=== PATIENT | male | born 1955 | race Caucasian/White ===

== ENCOUNTER 2022-01-26 11:00 | Inpatient (IN) | payer MEDICARE, OTHER ==
[2022-01-26 12:42] LABS: #Eosinphils 0.1 thou/uL (0.0-0.7); #Lymphocytes 1.3 thou/uL (1.20-3.40); #Monocytes 0.8 thou/uL (0.11-0.59); #Neutrophils 5.8 thou/uL (1.40-6.50); %Basophils 0.6 % (0.0-1.0); %Eosinophils 1.7 % (0.0-10.0); %Lymphocytes 15.7 % (21.0-51.0); %Monocytes 9.5 % (0.0-10.0); %Neutrophils 72.4 % (42.0-75.0); Hemoglobin 12.9 g/dL (14.0-18.0); Mean Corpuscular Hemoglobin 33.3 pg (27.0-31.0); Mean Platelet Volume 8.2 fL (7.4-10.4); Platelet Count 127 thou/uL (130-400); RBC Distribution Width 12.1 % (11.5-14.5); Red Blood Cell (RBC) Count 3.87 mill/uL (4.70-6.10)
[2022-01-26 13:02] LABS: Anion Gap 17 mmol/L (10-20); BUN (Urea Nitrogen) 16 mg/dL (8.4-25.7); Calc. Creatinine Clearance 0 mL/min (70-130); Calcium 9.5 mg/dL (7.8-10.44); Carbon Dioxide 28 mmol/L (23-31); Chloride 93 mmol/L (98-107); Estimated GFR 96; Glucose 131 mg/dL (80-115); Magnesium 1.7 mg/dL (1.6-2.6); Potassium 3.5 mmol/L (3.5-5.1); Sodium 134 mmol/L (136-145)
[2022-01-26] MEDS ORDERED: chlordiazePOXIDE HCl 25 MG CAP PO SCH (14:45)
[2022-01-26] MEDS ORDERED: Ondansetron PF 4 MG/2 ML Vial IVP PRN (15:42)
[2022-01-26] MEDS ORDERED: Lorazepam 1 MG TAB PO PRN (15:47)
[2022-01-26] MEDS ORDERED: Lorazepam 2 MG/ML VIAL IM PRN (15:47)
[2022-01-26] MEDS ORDERED: Ondansetron ODT 4 MG TAB PO PRN (15:47)
[2022-01-26] MEDS ORDERED: Electrolyte Replacement Protocol 1 EACH FS SCH (16:00)
[2022-01-26] MEDS ORDERED: Electrolyte Replacement Protocol FS PRN (16:45)
[2022-01-26 17:16] LABS: CKMB 5.3 ng/mL (0-6.6)
[2022-01-26] MEDS ORDERED: Dextrose 50% Abboject 50 ML SYRINGE SLOW IVP PRN (17:32)
[2022-01-26] MEDS ORDERED: Dextrose 5% in Water 1,000 ML IV PRN (17:32)
[2022-01-26] MEDS ORDERED: HumaLOG 300 UNITS/3 ML VIAL SC PRN (17:32)
[2022-01-26 18:29] LABS: Syphilis Antibody Nonreactive (Nonreactive); Syphilis Antibody Index 0.08 S/CO (<1.00 Non-Reactive)
[2022-01-26] MEDS ORDERED: Lorazepam 1 MG TAB ONE (18:53)
[2022-01-26] MEDS: Lorazepam 1 MG TAB PO SCH (18:56)
[2022-01-26 21:20] LABS: SARS-CoV-2 NAA Rapid Test DETECTED (NotDetected)
[2022-01-26] MEDS ORDERED: Potassium Chloride 20 MEQ TAB PO SCH (22:00)
[2022-01-26] MEDS ORDERED: Magnesium 2 GM/50 ML(in water) 2 GM in Premix Bag 1 BAG IVPB SCH (22:00)
[2022-01-26] MEDS ORDERED: Magnesium 2 GM/50 ML BAG (IN WATER) ONE (23:21)
[2022-01-27] MEDS ORDERED: Acetaminophen 650 MG Suppository PR PRN (03:30)
[2022-01-27] MEDS ORDERED: Acetaminophen 325 MG TAB PO PRN (03:30)
[2022-01-27] MEDS ORDERED: Benzonatate 100 MG CAP PO PRN (03:30)
[2022-01-27] MEDS ORDERED: Albuterol 200 PUFF (6.7GM INHALER) INH PRN (03:30)
[2022-01-27 03:40] VITALS: BMI 34.4
[2022-01-27 05:25] LABS: #Basophils 0.1 thou/uL (0.0-0.2); #Eosinphils 0.5 thou/uL (0.0-0.7); #Lymphocytes 1.4 thou/uL (1.20-3.40); #Monocytes 0.7 thou/uL (0.11-0.59); #Neutrophils 3.9 thou/uL (1.40-6.50); %Basophils 1.3 % (0.0-1.0); %Lymphocytes 21.3 % (21.0-51.0); %Monocytes 10.7 % (0.0-10.0); %Neutrophils 59.8 % (42.0-75.0); Hemoglobin 12.3 g/dL (14.0-18.0); Mean Corpuscular HGB CONC 33.1 g/dL (32.0-36.0); Mean Corpuscular Hemoglobin 33.5 pg (27.0-31.0); Mean Platelet Volume 8.4 fL (7.4-10.4); Platelet Count 111 thou/uL (130-400); RBC Distribution Width 12.2 % (11.5-14.5); Red Blood Cell (RBC) Count 3.66 mill/uL (4.70-6.10); White Blood Cell (WBC) Count 6.5 thou/uL (4.8-10.8)
[2022-01-27 05:31] LABS: Anion Gap 12 mmol/L (10-20); BUN (Urea Nitrogen) 14 mg/dL (8.4-25.7); Calc. Creatinine Clearance 150 mL/min (70-130); Carbon Dioxide 30 mmol/L (23-31); Chloride 97 mmol/L (98-107); Estimated GFR 97; Glucose 200 mg/dL (80-115); Magnesium 2.1 mg/dL (1.6-2.6); Potassium 3.3 mmol/L (3.5-5.1); Sodium 136 mmol/L (136-145)
[2022-01-27] MEDS ORDERED: Potassium Chloride 20 MEQ TAB PO SCH (08:00)
[2022-01-27] MEDS: Lorazepam 1 MG TAB PO SCH ×5 (08:02→21:25)
[2022-01-27] MEDS: Insulin Glargine 30 UNITS/0.3 ML VIAL SC SCH ×3 (08:02→21:25)
[2022-01-27] MEDS: Famotidine 20 MG TAB PO SCH ×3 (08:02→21:27)
[2022-01-27] MEDS: Atorvastatin Calcium 20 MG TAB PO SCH ×2 (08:02→21:25)
[2022-01-27] MEDS: Acetaminophen 325 MG TAB PO PRN ×2 (08:55→21:35)
[2022-01-27] MEDS: Hydrochlorothiazide 25 MG TAB PO SCH (08:58)
[2022-01-27] MEDS: Folic Acid 1 MG TAB PO SCH (08:58)
[2022-01-27] MEDS: Lisinopril 20 MG TAB PO SCH (08:59)
[2022-01-27] MEDS ORDERED: Folic Acid 1 MG TAB PO SCH (09:00)
[2022-01-27] MEDS: Amlodipine 5 MG TAB PO SCH (09:00)
[2022-01-27] MEDS: Multivit, Therapeutic 1 TAB PO SCH (09:00)
[2022-01-27] MEDS: HumaLOG 300 UNITS/3 ML VIAL SC PRN ×2 (11:41→17:30)
[2022-01-27 14:19] LABS: Potassium 3.7 mmol/L (3.5-5.1)
[2022-01-27] MEDS ORDERED: Bupropion 150 MG XL TAB PO SCH (14:30)
[2022-01-27] MEDS ORDERED: Lorazepam 1 MG TAB PO PRN (15:47)
[2022-01-28 05:00] LABS: #Basophils 0.1 thou/uL (0.0-0.2); #Eosinphils 0.7 thou/uL (0.0-0.7); #Lymphocytes 1.3 thou/uL (1.20-3.40); #Monocytes 0.6 thou/uL (0.11-0.59); %Basophils 1.2 % (0.0-1.0); %Eosinophils 10.1 % (0.0-10.0); %Lymphocytes 19.1 % (21.0-51.0); %Monocytes 9.4 % (0.0-10.0); %Neutrophils 60.2 % (42.0-75.0); Hemoglobin 13.1 g/dL (14.0-18.0); Mean Corpuscular HGB CONC 33.4 g/dL (32.0-36.0); Mean Platelet Volume 8.2 fL (7.4-10.4); Platelet Count 127 thou/uL (130-400); RBC Distribution Width 12.4 % (11.5-14.5); Red Blood Cell (RBC) Count 3.84 mill/uL (4.70-6.10); White Blood Cell (WBC) Count 6.7 thou/uL (4.8-10.8)
[2022-01-28 05:20] LABS: Anion Gap 12 mmol/L (10-20); BUN (Urea Nitrogen) 18 mg/dL (8.4-25.7); Calc. Creatinine Clearance 140 mL/min (70-130); Carbon Dioxide 28 mmol/L (23-31); Chloride 98 mmol/L (98-107); Estimated GFR 95; Potassium 3.4 mmol/L (3.5-5.1); Sodium 135 mmol/L (136-145)
[2022-01-28 05:21] LABS: Calcium 9.4 mg/dL (7.8-10.44); Glucose 185 mg/dL (80-115)
[2022-01-28 05:26] LABS: Troponin I 0.056 ng/mL (< 0.028)
[2022-01-28] MEDS: Lorazepam 1 MG TAB PO SCH ×2 (05:36→11:04)
[2022-01-28] MEDS ORDERED: Potassium Chloride 20 MEQ TAB PO SCH (08:30)
[2022-01-28] MEDS: Hydrochlorothiazide 25 MG TAB PO SCH (08:46)
[2022-01-28] MEDS: Folic Acid 1 MG TAB PO SCH (08:46)
[2022-01-28] MEDS: Multivit, Therapeutic 1 TAB PO SCH (08:49)
[2022-01-28] MEDS: Amlodipine 5 MG TAB PO SCH (08:49)
[2022-01-28] MEDS: Lisinopril 20 MG TAB PO SCH (08:49)
[2022-01-28] MEDS: Bupropion 150 MG XL TAB PO SCH (08:49)
[2022-01-28] MEDS: Famotidine 20 MG TAB PO SCH (08:49)
[2022-01-28] MEDS: Insulin Glargine 30 UNITS/0.3 ML VIAL SC SCH ×2 (08:50→20:24)
[2022-01-28] MEDS: Acetaminophen 325 MG TAB PO PRN (08:53)
[2022-01-28] MEDS: HumaLOG 300 UNITS/3 ML VIAL SC PRN ×2 (12:54→18:22)
[2022-01-28] MEDS ORDERED: Amlodipine 5 MG TAB PO SCH (13:45)
[2022-01-28] MEDS ORDERED: Insulin Glargine 30 UNITS/0.3 ML VIAL SC SCH (14:15)
[2022-01-28] MEDS ORDERED: Lorazepam 1 MG TAB PO PRN (15:47)
[2022-01-28] MEDS ORDERED: Lorazepam 0.5 MG TAB PO SCH (16:00)
[2022-01-28] MEDS: Diazepam 5 MG TAB PO SCH ×2 (16:27→20:25)
[2022-01-28] MEDS: Atorvastatin Calcium 20 MG TAB PO SCH (20:25)
[2022-01-29] MEDS: Diazepam 5 MG TAB PO SCH ×4 (02:44→20:40)
[2022-01-29 05:36] LABS: #Basophils 0.1 thou/uL (0.0-0.2); #Eosinphils 0.8 thou/uL (0.0-0.7); #Lymphocytes 1.6 thou/uL (1.20-3.40); #Monocytes 0.9 thou/uL (0.11-0.59); #Neutrophils 5.3 thou/uL (1.40-6.50); %Basophils 0.8 % (0.0-1.0); %Eosinophils 8.8 % (0.0-10.0); %Lymphocytes 18.8 % (21.0-51.0); %Monocytes 10.4 % (0.0-10.0); %Neutrophils 61.2 % (42.0-75.0); Hemoglobin 13.2 g/dL (14.0-18.0); Mean Corpuscular HGB CONC 34.5 g/dL (32.0-36.0); Mean Platelet Volume 8.4 fL (7.4-10.4); Platelet Count 128 thou/uL (130-400); RBC Distribution Width 12.4 % (11.5-14.5); Red Blood Cell (RBC) Count 3.77 mill/uL (4.70-6.10); White Blood Cell (WBC) Count 8.7 thou/uL (4.8-10.8)
[2022-01-29 05:54] LABS: Anion Gap 12 mmol/L (10-20); BUN (Urea Nitrogen) 16 mg/dL (8.4-25.7); Calc. Creatinine Clearance 143 mL/min (70-130); Calcium 9.9 mg/dL (7.8-10.44); Carbon Dioxide 32 mmol/L (23-31); Chloride 98 mmol/L (98-107); Estimated GFR 96; Glucose 110 mg/dL (80-115); Potassium 3.7 mmol/L (3.5-5.1); Sodium 138 mmol/L (136-145)
[2022-01-29] MEDS: Insulin Glargine 30 UNITS/0.3 ML VIAL SC SCH ×2 (09:13→20:40)
[2022-01-29] MEDS: Cyanocobalamin (Vitamin B-12) 1,000 MCG TAB PO SCH (09:14)
[2022-01-29] MEDS: Folic Acid 1 MG TAB PO SCH (09:14)
[2022-01-29] MEDS: Hydrochlorothiazide 25 MG TAB PO SCH (09:14)
[2022-01-29] MEDS: Multivit, Therapeutic 1 TAB PO SCH (09:14)
[2022-01-29] MEDS: Bupropion 150 MG XL TAB PO SCH (09:14)
[2022-01-29] MEDS: Lisinopril 20 MG TAB PO SCH (09:14)
[2022-01-29] MEDS: Amlodipine 10 MG TAB PO SCH (09:15)
[2022-01-29] MEDS: HumaLOG 300 UNITS/3 ML VIAL SC PRN (12:54)
[2022-01-29] MEDS ORDERED: HumaLOG 300 UNITS/3 ML VIAL SC PRN (12:59)
[2022-01-29] MEDS ORDERED: Metoprolol Tartrate 25 MG TAB PO SCH (13:30)
[2022-01-29] MEDS ORDERED: Lorazepam 0.5 MG TAB PO PRN (15:47)
[2022-01-29] MEDS ORDERED: Thiamine 100 MG TAB PO SCH ×2 (17:00)
[2022-01-29] MEDS: Acetaminophen 325 MG TAB PO PRN (20:39)
[2022-01-29] MEDS: Metoprolol Tartrate 25 MG TAB PO SCH (20:40)
[2022-01-29] MEDS: Atorvastatin Calcium 20 MG TAB PO SCH (20:40)
[2022-01-30] MEDS: Diazepam 5 MG TAB PO SCH ×2 (03:23→09:52)
[2022-01-30] MEDS ORDERED: Hydrochlorothiazide 25 MG TAB PO SCH (09:00)
[2022-01-30] MEDS: Cyanocobalamin (Vitamin B-12) 1,000 MCG TAB PO SCH (09:46)
[2022-01-30] MEDS: Folic Acid 1 MG TAB PO SCH (09:46)
[2022-01-30] MEDS: Metoprolol Tartrate 25 MG TAB PO SCH (09:46)
[2022-01-30] MEDS: Insulin Glargine 30 UNITS/0.3 ML VIAL SC SCH (09:46)
[2022-01-30] MEDS: Amlodipine 10 MG TAB PO SCH (09:46)
[2022-01-30] MEDS: Bupropion 150 MG XL TAB PO SCH (09:47)
[2022-01-30] MEDS: Lisinopril 20 MG TAB PO SCH (09:47)
[2022-01-30] MEDS: Multivit, Therapeutic 1 TAB PO SCH (09:48)
[2022-01-30 11:54] VITALS: BP 164/96; TEMP 98
== END 2022-01-30 14:45 | disposition home or self-care (01) | DRG 896 ==
LOC: ERS 11:00 → ERHOLD 15:47 → NEURO 21:32
PROVIDERS: ADMIT Family Medicine; ATTEND Family Medicine
DX: F10.239 Alcohol dependence with withdrawal, unspecified (principal); U07.1 COVID-19; I10 Essential (primary) hypertension; E78.5 Hyperlipidemia, unspecified; F41.9 Anxiety disorder, unspecified; Z79.82 Long term (current) use of aspirin; Z79.4 Long term (current) use of insulin; Z79.899 Other long term (current) drug therapy; F43.10 Post-traumatic stress disorder, unspecified
CPT/HCPCS: 36415; 36416; 71045; 80048; 80307; 82553; 83735; 83880; 84484; 85025; 86780; 93005; J1815

== ENCOUNTER 2024-06-01 11:18 | Inpatient (IN) | payer MEDICARE, OTHER ==
[2024-06-01] MEDS ORDERED: Bisacodyl 10 MG SUPP PR PRN (11:58)
[2024-06-01] MEDS ORDERED: Ondansetron ODT 4 MG TAB PO PRN (11:58)
[2024-06-01] MEDS ORDERED: Acetaminophen 325 MG TAB PO PRN (11:58)
[2024-06-01] MEDS ORDERED: Ondansetron PF 4 MG/2 ML Vial IVP PRN (11:58)
[2024-06-01] MEDS ORDERED: Senokot S 8.6-50 MG TAB PO PRN (11:58)
[2024-06-01] MEDS ORDERED: Bisacodyl 5 MG TAB PO PRN (11:58)
[2024-06-01] MEDS ORDERED: Glucagon 1 MG/ML KIT IM PRN ×2 (12:10→12:53)
[2024-06-01] MEDS ORDERED: Dextrose 5% in Water 1,000 ML IV PRN ×2 (12:10→12:53)
[2024-06-01] MEDS ORDERED: Dextrose 50% Abboject 50 ML SYRINGE SLOW IVP PRN ×2 (12:10→12:53)
[2024-06-01 12:20] LABS: Troponin I 0.047 ng/mL (< 0.028)
[2024-06-01] MEDS ORDERED: Methocarbamol 500 MG TAB PO PRN (12:52)
[2024-06-01] MEDS ORDERED: Lorazepam 2 MG/ML VIAL IM PRN (13:06)
[2024-06-01] MEDS ORDERED: Lorazepam 1 MG TAB PO PRN (13:06)
[2024-06-01] MEDS ORDERED: Electrolyte Replacement Protocol FS SCH (13:15)
[2024-06-01] MEDS: Amlodipine 5 MG TAB PO SCH (14:55)
[2024-06-01] MEDS: Lisinopril 10 MG TAB PO SCH (14:55)
[2024-06-01] MEDS: Folic Acid 1 MG TAB PO SCH (14:55)
[2024-06-01 15:17] VITALS: BMI 35.7
[2024-06-01] MEDS: Lorazepam 1 MG TAB PO SCH (16:02)
[2024-06-01 16:18] LABS: Cocaine Metabolite Screen Not Detected (NotDetected); Phencyclidine (PCP) Not Detected (NotDetected); THC/Cannabinoid Screen Not Detected (NotDetected)
[2024-06-01 16:19] LABS: Methamphetamine Not Detected (NotDetected); Opiate Screen Not Detected (NotDetected)
[2024-06-01 16:20] LABS: Amphetamine Not Detected (NotDetected); Benzodiazepine Screen Not Detected (NotDetected); Methadone Not Detected (NotDetected); Tricyclic Screen Not Detected (NotDetected)
[2024-06-01 16:21] LABS: Barbiturates Screen Not Detected (NotDetected); Oxycodone Screen Not Detected (NotDetected)
[2024-06-01] MEDS: Multivit, Therapeutic 1 TAB PO SCH (18:40)
[2024-06-01] MEDS: Insulin Regular, Human 100 UNIT/ML 10 ML VIAL SC SCH (18:40)
[2024-06-01] MEDS: chlordiazePOXIDE HCl 25 MG CAP PO SCH (22:00)
[2024-06-01] MEDS: Atorvastatin Calcium 40 MG TAB PO SCH (22:00)
[2024-06-01] MEDS: Insulin Lispro 100 UNIT/ML 10 ML VIAL SC PRN (22:01)
[2024-06-01] MEDS: Labetalol HCl 100 MG/20 ML VIAL SLOW IVP PRN (22:17)
[2024-06-01] MEDS: Melatonin 3 MG TAB PO SCH (22:17)
[2024-06-02 04:34] LABS: #Basophils 0.05 10x3/uL (0.0-0.2); %Basophils 0.6 % (0.0-1.0); %Eosinophils 4.6 % (0.0-10.0); %Lymphocytes 24.1 % (21.0-51.0); %Monocytes 10.4 % (0.0-10.0); Hematocrit 38.5 % (42.0-52.0); Mean Corpuscular HGB CONC 33.8 g/dL (32.0-36.0); Mean Corpuscular Hemoglobin 33.3 pg (27.0-31.0); Mean Corpuscular Volume 98.7 fL (78.0-98.0); Mean Platelet Volume 10.7 fL (7.4-10.4); Platelet Count 148 10x3/uL (130-400); RBC Distribution Width 13.5 % (11.5-14.5)
[2024-06-02 04:40] LABS: Hemoglobin A1c 8.2 % (4.0-6.0)
[2024-06-02 04:54] LABS: ALT (SGPT) 52 U/L (8-55); AST (SGOT) 67 U/L (5-34); Albumin 3.4 g/dL (3.4-4.8); Alkaline Phosphatase 97 U/L (40-110); Anion Gap 14 mmol/L (10-20); BUN (Urea Nitrogen) 17 mg/dL (8.4-25.7); Bilirubin, Direct 0.5 mg/dL (0.1-0.3); Bilirubin, Total 1.4 mg/dL (0.2-1.2); Calc. Creatinine Clearance 148 mL/min (70-130); Calcium 9.2 mg/dL (7.8-10.44); Carbon Dioxide 28 mmol/L (23-31); Cardiac Risk 3.7 (Less than 4.5); Chloride 99 mmol/L (98-107); Cholesterol 232 mg/dl (< 200 Desired); Estimated GFR 96; Glucose 214 mg/dL (80-115); HDL Cholesterol 63 mg/dL (>60 Neg Risk); LDL Cholesterol, Calculated 132 mg/dL; Magnesium 1.8 mg/dL (1.6-2.6); Potassium 3.6 mmol/L (3.5-5.1); Protein, Total 7.3 g/dL (5.8-8.1); Sodium 137 mmol/L (136-145); Triglycerides 186 mg/dL (Less than 150)
[2024-06-02] MEDS: Insulin Regular, Human 100 UNIT/ML 10 ML VIAL SC SCH ×2 (07:35→12:33)
[2024-06-02] MEDS: Insulin Lispro 100 UNIT/ML 10 ML VIAL SC PRN (07:35)
[2024-06-02] MEDS: Multivit, Therapeutic 1 TAB PO SCH (08:48)
[2024-06-02] MEDS: Enoxaparin 40 MG (0.4 mL) SYRINGE SC SCH (08:48)
[2024-06-02] MEDS: Folic Acid 1 MG TAB PO SCH (08:48)
[2024-06-02] MEDS: Sertraline 100 MG TAB PO SCH (08:48)
[2024-06-02] MEDS: Insulin Glargine 30 UNITS/0.3 ML VIAL SC SCH (08:48)
[2024-06-02] MEDS: Aspirin 81 mg Enteric Coated Tablet PO SCH (08:48)
[2024-06-02] MEDS: Magnesium 2 GM/50 ML(in water) 2 GM in Premix 1 BAG IVPB SCH (08:49)
[2024-06-02 10:50] LABS: Troponin I 0.032 ng/mL (< 0.028)
[2024-06-02] MEDS: Lorazepam 2 MG/ML VIAL SLOW IVP SCH (11:29)
[2024-06-02] MEDS: Amlodipine 10 MG TAB PO SCH ×2 (12:30→22:50)
[2024-06-02] MEDS: Hydrochlorothiazide 25 MG TAB PO SCH (12:32)
[2024-06-02] MEDS: Lisinopril 20 MG TAB PO SCH (12:32)
[2024-06-02] MEDS ORDERED: Lorazepam 1 MG TAB PO PRN (13:06)
[2024-06-02] MEDS ORDERED: Non-Formulary Item 1 EACH (Atorvastatin Calcium [Atorvastatin Calcium] 80 MG Tablet) PO SCH (21:00)
[2024-06-02] MEDS: Melatonin 3 MG TAB PO SCH (22:50)
[2024-06-03 04:08] LABS: #Basophils 0.05 10x3/uL (0.0-0.2); %Basophils 0.5 % (0.0-1.0); %Eosinophils 5.3 % (0.0-10.0); %Lymphocytes 28.9 % (21.0-51.0); %Monocytes 9.9 % (0.0-10.0); Hematocrit 38.4 % (42.0-52.0); Mean Corpuscular HGB CONC 33.9 g/dL (32.0-36.0); Mean Corpuscular Hemoglobin 33.7 pg (27.0-31.0); Mean Corpuscular Volume 99.5 fL (78.0-98.0); Mean Platelet Volume 10.3 fL (7.4-10.4); Platelet Count 157 10x3/uL (130-400); RBC Distribution Width 13.2 % (11.5-14.5); Red Blood Cell (RBC) Count 3.86 mill/uL (4.70-6.10)
[2024-06-03 04:21] LABS: Anion Gap 13 mmol/L (10-20); BUN (Urea Nitrogen) 18 mg/dL (8.4-25.7); Calc. Creatinine Clearance 160 mL/min (70-130); Calcium 9.4 mg/dL (7.8-10.44); Carbon Dioxide 26 mmol/L (23-31); Chloride 100 mmol/L (98-107); Estimated GFR 98; Glucose 160 mg/dL (80-115); Magnesium 1.9 mg/dL (1.6-2.6); Potassium 3.7 mmol/L (3.5-5.1); Sodium 135 mmol/L (136-145)
[2024-06-03] MEDS: Hydrochlorothiazide 25 MG TAB PO SCH (08:35)
[2024-06-03] MEDS: Lisinopril 20 MG TAB PO SCH (08:36)
[2024-06-03] MEDS: Magnesium 2 GM/50 ML(in water) 2 GM in Premix 1 BAG IVPB SCH (08:37)
[2024-06-03] MEDS ORDERED: Amlodipine 10 MG TAB PO SCH (09:00)
[2024-06-03] MEDS ORDERED: Regadenoson 0.4 MG/5 ML SYRINGE ONE (11:48)
[2024-06-03] MEDS ORDERED: Lorazepam 1 MG TAB PO PRN (13:06)
[2024-06-03] MEDS: Insulin Glargine 30 UNITS/0.3 ML VIAL SC SCH (15:52)
[2024-06-03] MEDS: Melatonin 3 MG TAB PO PRN (21:12)
[2024-06-03] MEDS: Amlodipine 10 MG TAB PO SCH (21:12)
[2024-06-04 04:10] LABS: #Basophils 0.09 10x3/uL (0.0-0.2); %Basophils 0.9 % (0.0-1.0); %Eosinophils 4.9 % (0.0-10.0); %Lymphocytes 26.8 % (21.0-51.0); %Monocytes 11.4 % (0.0-10.0); %Neutrophils 55.6 % (42.0-75.0); Hematocrit 39.4 % (42.0-52.0); Hemoglobin 13.6 g/dL (14.0-18.0); Mean Corpuscular HGB CONC 34.5 g/dL (32.0-36.0); Mean Corpuscular Hemoglobin 34.7 pg (27.0-31.0); Mean Corpuscular Volume 100.5 fL (78.0-98.0); Mean Platelet Volume 10.5 fL (7.4-10.4); Platelet Count 174 10x3/uL (130-400); RBC Distribution Width 13.4 % (11.5-14.5); Red Blood Cell (RBC) Count 3.92 mill/uL (4.70-6.10)
[2024-06-04 05:50] LABS: Anion Gap 16 mmol/L (10-20); BUN (Urea Nitrogen) 18 mg/dL (8.4-25.7); Carbon Dioxide 24 mmol/L (23-31); Chloride 100 mmol/L (98-107); Potassium 4.1 mmol/L (3.5-5.1); Sodium 136 mmol/L (136-145)
[2024-06-04 05:51] LABS: Calc. Creatinine Clearance 147 mL/min (70-130); Calcium 9.7 mg/dL (7.6-10.4); Estimated GFR 95; Glucose 156 mg/dL (80-115); Magnesium 1.9 mg/dL (1.6-2.6)
[2024-06-04] MEDS ORDERED: Electrolyte Replacement Protocol FS PRN (08:30)
[2024-06-04] MEDS: Magnesium 2 GM/50 ML(in water) 2 GM in Premix 1 BAG IVPB SCH (08:44)
[2024-06-04] MEDS ORDERED: Lorazepam 0.5 MG TAB PO PRN (13:06)
[2024-06-04] MEDS: Thiamine 100 MG TAB PO SCH (13:16)
[2024-06-04 17:09] VITALS: BP 143/74; TEMP 97.6
[2024-06-04] MEDS: Carvedilol 25 MG TAB PO SCH (17:48)
== END 2024-06-04 18:30 | disposition home or self-care (01) | DRG 311 ==
LOC: ERS 11:18 → SUATTDRO 11:18 → 2SE 11:58 → OBSVTOIN 06-02 09:57
PROVIDERS: ADMIT Family Medicine; ATTEND Internal Medicine
DX: I20.9 Angina pectoris, unspecified (principal); I16.1 Hypertensive emergency; I10 Essential (primary) hypertension; F10.10 Alcohol abuse, uncomplicated; E11.9 Type 2 diabetes mellitus without complications; E78.5 Hyperlipidemia, unspecified; F41.9 Anxiety disorder, unspecified; F32.A Depression, unspecified; F43.10 Post-traumatic stress disorder, unspecified; Z87.891 Personal history of nicotine dependence
CPT/HCPCS: 36415; 36416; 70551; 71045; 78452; 80048; 80061; 80076; 80306; 83036; 83735; 83880; 84443; 84484; 85025; 93005; 93017; 93306; 93970; 94760; 96372; 96374; 96375; 96376; A9502; G0378; J1650; J1815; J2060; J2785; J3475